=== PATIENT | male | born 1955 | race Caucasian/White ===

== ENCOUNTER 2016-08-28 07:50 | Day surgery (SDC) | payer OTHER ==
[~2016-08-28] VITALS: Ht 182.9 cm; Wt 111.1 kg
[~2016-08-28 07:50] MED LIST: CEFAZOLIN 2GM PREMIX 50 ML IV ONE; FENTANYL PF 100 MCG/2 ML VIAL. IV PRN; HYDROMORPHONE 2 MG/ML VIAL. IV PRN; IV RINGERS,LACTATED 1000ML 1,000 ML IV SCH; LIDOCAINE 1% 1 ML SYRINGE. ID PRN; MORPHINE SULFATE 2 MG/ML DISP.SYRIN. IV PRN; ONDANSETRON PF 4 MG/2 ML VIAL. IV PRN; PROCHLORPERAZINE 10 MG/2 ML VIAL. IV PRN
[2016-08-28] MEDS ORDERED: PROPOFOL 20 ML IV ONE (08:12)
[2016-08-28] MEDS ORDERED: LIDOCAINE 2% 100 MG/5 ML SYRINGE. ONE (08:12)
[2016-08-28] MEDS ORDERED: FENTANYL PF 100 MCG/2 ML VIAL. ONE (08:12)
[2016-08-28] MEDS ORDERED: IV RINGERS,LACTATED 1000ML 1,000 ML IV ONE (08:30)
[2016-08-28] MEDS ORDERED: METF10002 PO (08:43)
[2016-08-28] MEDS ORDERED: CYAN10005 PO (08:43)
[2016-08-28] MEDS ORDERED: CRESTOR10 MG PO (08:44)
[2016-08-28] MEDS ORDERED: OMEG300C PO (08:45)
[2016-08-28] MEDS ORDERED: OMEP40CA5 PO (08:45)
[2016-08-28] MEDS ORDERED: CHOL10003 PO (08:45)
[2016-08-28] MEDS ORDERED: ASPI-482 PO (08:46)
[2016-08-28] MEDS ORDERED: LEVO150T PO (08:46)
[2016-08-28] MEDS ORDERED: GLIM2TAB2 PO (08:47)
[2016-08-28] MEDS ORDERED: UBID100C12 PO (08:47)
[2016-08-28] MEDS ORDERED: LIDOCAINE 1%/EPI 1:100,000 20 ML VIAL. ONE (08:52)
[2016-08-28] MEDS ORDERED: SUCCINYLCHOLINE 200 MG/10 ML VIAL. ONE (09:24)
[2016-08-28] MEDS ORDERED: ROCURONIUM 50 MG/5 ML VIAL. ONE (09:24)
[2016-08-28] MEDS ORDERED: BUPIVAC MPF-EPI 0.5%-1:200000 30 ML VIAL. ONE (09:44)
[2016-08-28] MEDS ORDERED: GLYCOPYRROLATE 1 MG/5 ML VIAL. ONE (09:46)
[2016-08-28] MEDS ORDERED: ONDANSETRON PF 4 MG/2 ML VIAL. ONE (09:46)
[2016-08-28] MEDS ORDERED: DESFLURANE 31 TO 60 MINUTES IH ONE (09:46)
[2016-08-28] MEDS ORDERED: DEXAMETHASONE SOD PHOS 20 MG/5 ML VIAL. ONE (09:46)
[2016-08-28] MEDS ORDERED: NEOSTIGMINE METHYLSULFATE 5 MG/5 ML SYRINGE. ONE (09:47)
--- NOTE | 2016-08-28 10:19 | PDOC4 ---
Operative Note Operative Note Operative Note: Preoperative Diagnosis: Right abdominal wall mass Postoperative Diagnosis: Same Procedure: Excision of right abdominal wall mass Surgeon: Enmanuel Anesthesia: Gen. Specimen: Right abdominal wall mass, 5.5 x 4 cm Drains: None Complications: None Indication: The patient is a 60-year-old male who was referred because of a palpable mass located in the right abdominal wall. He does have a significant history of prior malignancies and wishes to proceed with excision of the mass to provide a definitive diagnosis. The risks of the surgery were discussed which include bleeding, infection, recurrence, pain, potential need for additional surgery or procedure. He is also aware that additional surgery may be required if the mass were to in fact be malignant. He understands and would like to proceed. Description: The patient was taken to the operating room and placed supine on the operating table. Gen. anesthesia was performed. The abdomen was prepped with ChloraPrep and draped in a standard surgical manner. A transverse incision was made directly overlying the mass which was just to the right of midline in the lower abdomen. Cautery dissection was used mostly in the subcutaneous tissue. The mass was readily palpable and appeared confined to the subcutaneous tissue. Using electrocautery the mass was fully mobilized from the surrounding tissues. Attempts were made to include a rim of normal margin tissue as well. The mass was then fully excised and measured 5.5 x 4 cm. The mass was then sent to pathology for evaluation. Several small bleeding spots were controlled with cautery. Hemostasis was then good. The skin was closed with a running 4-0 Monocryl suture. The incision was infiltrated with half percent Marcaine with epinephrine. Steri-Strips and a sterile dressing were then applied. The patient tolerated the procedure well and was sent to the recovery room in stable condition. At the end of the case all counts were correct. RONI MARX MD Aug 28, 2016 10:19
--- NOTE | 2016-08-28 10:22 | DISCH ---
DISCHARGE INSTRUCTIONS Condition on Discharge Condition on Discharge: Stable Activity After Discharge Activity Instructions for Disc: Other, see below (no strenuous activity X 14 days) Driving Instructions after Dis: Other, see below (no driving if taking pain medication) Diet after Discharge Diet after Discharge: Regular Wound Incision Care Wound/Incision Care: Other, see below (keep dressing clean and dry X 72 hours, may then remove and shower) Follow-Up Follow up with: Dr Marx in 2 weeks, call for appt [phone] RONI MARX MD Aug 28, 2016 10:22
[2016-08-28] MEDS ORDERED: OXYC-323 PO (10:33)
[2016-08-28] MEDS ORDERED: OXYCODONE/APAP 5/325 TABLET. ONE (10:40)
[2016-08-28] MEDS ORDERED: OXYCODONE/APAP 5/325 TABLET. PO ONE (10:45)
[2016-08-28 11:10] VITALS: BP 127/77
--- NOTE | 2016-08-30 08:22 | PATHOLOGY ---
PATHOLOGY REPORT * * * * * * * * FINAL DIAGNOSIS: Fibroadipose tissue, right abdominal wall nodule: - Organizing abscess with focal foreign body granulomatous reaction. COMMENT: There is no evidence of malignancy. (JPM:; d/t: 08/29/16) REPORT ELECTRONICALLY SIGNED BY: Nathaniel Brown M.D. DATE/TIME: 08/30/2016 08:21 * * * * * * * * GROSS PATHOLOGY: The specimen is received in formalin labeled "Kamran Leigh, right abdominal wall nodule". Received is a segment of yellow-ballesteros lobulated tissue measuring 5.1 x 3.6 x 3.5 cm in greatest dimensions. Sectioning reveals a necrotic-appearing possible abscess measuring 1.0 cm in maximum dimensions. The specimen is submitted representatively in cassettes A1 through A3. (CAA; 08/28/2016) INITIAL CPT CODE(S): 81826 Professional services [place] [place] [address] Technical services performed by [facility] at [address] [place] [address], [facility] [address] [address]. SPECIMEN(S) RECEIVED: A.Right abdominal wall nodule CLINICAL HISTORY: Abdominal wall mass PATIENT: KAMRAN LEIGH /AGE: 711/18/1955 (Age: 60) PATIENT #: [id number] ALT CASE #: SPECIMEN COLLECTION DATE: 08/28/2016 SPECIMEN RECEIVED DATE: 08/28/2016 [facility] - [address] [place] [address] - PHONE: [phone] * * * END OF REPORT * * *
== END 2016-08-28 11:18 | disposition home or self-care (01) ==
LOC: SURG 07:50
PROVIDERS: ATTEND Surgery
DX: R19.03 Right lower quadrant abdominal swelling, mass and lump (principal); E78.00 Pure hypercholesterolemia, unspecified; E66.9 Obesity, unspecified; M19.90 Unspecified osteoarthritis, unspecified site; K21.9 Gastro-esophageal reflux disease without esophagitis; E03.9 Hypothyroidism, unspecified; Z85.850 Personal history of malignant neoplasm of thyroid
CPT/HCPCS: 11406; 82947; 88304; J0330; J0690; J1100; J2405; J2704; J2710; J3010; J3490